=== PATIENT | female | born 1985 | race Caucasian/White ===

== ENCOUNTER 2017-05-25 11:01 | Emergency (ER) | payer MEDICAID ==
[~2017-05-25] VITALS: Ht 170.2 cm; Wt 110.5 kg
[2017-05-25] MEDS ORDERED: PREN1TAB80 PO (11:05)
[2017-05-25 11:38] VITALS: BP 139/81
== END 2017-05-25 11:39 | disposition home or self-care (01) ==
LOC: EMS 11:02
DX: O26.892 Other specified pregnancy related conditions, second trimester (principal); H65.02 Acute serous otitis media, left ear; Z3A.26 26 weeks gestation of pregnancy
CPT/HCPCS: 99283

== ENCOUNTER 2018-04-12 05:59 | Emergency (ER) | payer MEDICAID ==
[~2018-04-12] VITALS: Ht 170.2 cm; Wt 109.0 kg
[~2018-04-12 05:59] MED LIST: PREN1TAB80 PO
[2018-04-12 08:22] VITALS: BP 122/71
== END 2018-04-12 08:23 | disposition home or self-care (01) ==
LOC: EMS 06:00
DX: H66.91 Otitis media, unspecified, right ear (principal); L53.9 Erythematous condition, unspecified
CPT/HCPCS: 99283

== ENCOUNTER 2018-09-14 07:44 | Emergency (ER) | payer MEDICAID ==
[~2018-09-14] VITALS: Ht 167.6 cm; Wt 109.1 kg
[2018-09-14 11:22] VITALS: BP 136/78
== END 2018-09-14 11:28 | disposition home or self-care (01) ==
LOC: EMS 07:47
DX: J32.9 Chronic sinusitis, unspecified (principal); H92.03 Otalgia, bilateral

== ENCOUNTER 2019-01-18 21:26 | Emergency (ER) | payer MEDICAID ==
[~2019-01-18] VITALS: Ht 165.1 cm; Wt 104.5 kg
[2019-01-18 21:40] VITALS: BP 159/110
[2019-01-18 22:43] LABS: RAPID GROUP A STREP NEGATIVE (NEGATIVE)
[2019-01-18 22:56] LABS: INFLUENZA TYPE A NEGATIVE FOR TYPE A (NEGATIVE); INFLUENZA TYPE B NEGATIVE FOR TYPE B (NEGATIVE)
== END 2019-01-18 23:58 | disposition home or self-care (01) ==
LOC: EMS 21:27
DX: J32.9 Chronic sinusitis, unspecified (principal)
CPT/HCPCS: 87430; 87804

== ENCOUNTER 2019-01-20 12:03 | Emergency (ER) | payer MEDICAID ==
[~2019-01-20] VITALS: Ht 165.1 cm; Wt 104.5 kg
[2019-01-20] MEDS ORDERED: AMOX1TAB15 PO (13:02)
[2019-01-20 14:38] VITALS: BP 138/75
== END 2019-01-20 14:52 | disposition home or self-care (01) ==
LOC: EMS 12:04
DX: J30.9 Allergic rhinitis, unspecified (principal); R03.0 Elevated blood-pressure reading, without diagnosis of hypertension; Z79.899 Other long term (current) drug therapy

== ENCOUNTER 2021-07-23 01:44 | Emergency (ER) | payer MEDICAID, OTHER ==
[~2021-07-23] VITALS: Ht 170.2 cm; Wt 109.1 kg
[~2021-07-23 01:44] MED LIST changes: +AMOX1TAB15 PO; -PREN1TAB80 PO
[2021-07-23 02:14] VITALS: BP 136/82
[2021-07-23] MEDS ORDERED: IBUPROFEN 600 MG TABLET PO ONE (02:15)
== END 2021-07-23 02:44 | disposition home or self-care (01) ==
LOC: EMS 01:47
DX: H66.002 Acute suppurative otitis media without spontaneous rupture of ear drum, left ear (principal); H60.92 Unspecified otitis externa, left ear; Z79.899 Other long term (current) drug therapy
CPT/HCPCS: 99283

== ENCOUNTER 2021-07-25 22:05 | Emergency (ER) | payer OTHER ==
[~2021-07-25] VITALS: Ht 170.2 cm; Wt 109.1 kg
[2021-07-25] MEDS ORDERED: IBUP-2070 PO (22:09)
[2021-07-25 22:11] VITALS: BP 150/92
== END 2021-07-25 22:50 | disposition home or self-care (01) ==
LOC: EMS 22:09
DX: H60.92 Unspecified otitis externa, left ear (principal)
CPT/HCPCS: 99283